=== PATIENT | male | born 1985 | race Two or more races ===

== ENCOUNTER 2020-04-22 14:03 | Outpatient (CLI) | payer OTHER | END 2020-04-22 17:21 | disposition home or self-care (01) | LOC: OFIC 805 14:03 | PROVIDERS: ATTEND Otolaryngology | DX: H60.8X1 Other otitis externa, right ear (principal); H92.01 Otalgia, right ear; H61.21 Impacted cerumen, right ear ==

== ENCOUNTER 2020-04-27 15:09 | Outpatient (CLI) | payer OTHER | END 2020-04-27 15:44 | disposition home or self-care (01) | LOC: OFIC 805 15:09 | PROVIDERS: ATTEND Otolaryngology | DX: H60.8X1 Other otitis externa, right ear (principal); H92.01 Otalgia, right ear ==